=== PATIENT | male | born 1990 | race Caucasian/White ===

== ENCOUNTER 2021-09-19 14:50 | Emergency (ER) | payer OTHER ==
[2021-09-19 15:42] LABS: BASOPHIL 0.3 % (0-2); EOSINOPHIL 0.1 % (0-5); HCT 37.1 % (42.0-52.0); HGB 12.2 g/dl (13.2-18.0); LYMPHOCYTE 6.5 % (15-48); MCH 28.8 pg (25.0-31.0); MCHC 32.9 g/dL (32.0-36.0); MCV 87.7 fL (78.0-100.0); MONOCYTE 3.4 % (0-12); MPV 12.2 fL (6.0-9.5); NEUTROPHIL 89.4 % (41-80); NRBC 0; PLT 170 K/uL (150-400); RBC 4.23 M/uL (4.70-6.00); RDW 12.5 % (11.5-14.0); WBC 14.6 K/uL (4.0-10.5)
[2021-09-19 16:04] LABS: ALBUMIN 4.5 g/dL (3.4-5.0); ALKALINE PHOSHATASE 83 U/L (46-116); ALT 23 U/L (16-63); AST 16 U/L (15-37); BILIRUBIN - TOTAL 0.7 mg/dL (0.2-1.0); BUN 21 mg/dL (7-18); BUN/CREAT RATIO (CALC) 33.3 RATIO; CHLORIDE 96 mmol/L (98-107); CO2 (BICARBONATE) 26 mmol/L (21-32); CREATININE 0.63 mg/dL (0.67-1.17); GLOBULIN (CALCULATION) 3.7 g/dL; GLUCOSE 299 mg/dL (74-106); LIPASE >2250 U/L (73-393); POTASSIUM 3.7 mmol/L (3.5-5.1); TOTAL PROTEIN 8.2 g/dL (6.4-8.2)
[2021-09-19 17:05] LABS: BILIRUBIN NEGATIVE (NEGATIVE); BLOOD NEGATIVE Ery/uL (NEGATIVE); CLARITY CLEAR (CLEAR); COLOR YELLOW (YELLOW); GLUCOSE (U) 3+ mg/dL (NORMAL); LEUKOCYTES NEGATIVE Leu/uL (NEGATIVE); NITRITE NEGATIVE (NEGATIVE); PROTEIN NEGATIVE (NEGATIVE); SPECIFIC GRAVITY >=1.030 (1.001-1.030); UROBILINOGEN 0.2 mg/dL (0.2-1.0); pH 5.5 (5.0-9.0)
[2021-09-19 17:54] LABS: LACTIC ACID 4.6 mmol/L (0.4-1.9)
== END 2021-09-19 19:16 | disposition other institution (70) ==
LOC: FER 14:50
PROVIDERS: Emergency Medicine
DX: K56.609 Unspecified intestinal obstruction, unspecified as to partial versus complete obstruction (principal); Z88.6 Allergy status to analgesic agent
CPT/HCPCS: 36415; 71045; 74018; 80053; 81003; 83605; 83690; 84145; 85025; 87040; J0330; J1630; J2250; J2405; J2543; J7030